=== PATIENT | female | born 1955 | race Caucasian/White ===

== ENCOUNTER 2018-10-15 05:36 | Emergency (ER) | payer SELFPAY ==
[~2018-10-15] VITALS: Ht 157.5 cm; Wt 49.9 kg
[2018-10-15] MEDS ORDERED: LIBRIUM25 MG ORAL (05:57)
--- NOTE | 2018-10-15 05:57 | Emergency Room Report ---
History of Present Illness General Chief Complaint: Substance Abuse Source: Patient Present Illness HPI Is a 62-year-old female who is an alcoholic. She presents with chief complaint of withdrawal symptoms. She was just discharged from the hospital and said that her last drink was 4 hours ago. She felt shaky. Similar symptom in the past. No fever chills. No chest pain. No suicidal thoughts. Said usually get Valium. Denies any other complaint. Allergies: Coded Allergies: PENICILLINS (Verified Allergy, Unknown, 10/15/18) SHELLFISH DERIVED (Verified Allergy, Unknown, 10/15/18) Patient History Past Medical History: see triage record, old chart reviewed Past Surgical History: none Pertinent Family History: none Social History: Reports: alcohol use; Denies: smoking Last Menstrual Period: n/a Now: No Immunizations: other Reviewed Nursing Documentation: PMH: Agreed; PSxH: Agreed Nursing Documentation-PM Past Medical History: No Stated History Review of Systems Eye: Denies: eye pain, blurred vision ENT: Denies: ear pain, nose congestion, throat swelling Respiratory: Denies: cough, shortness of breath Cardiovascular: Denies: chest pain, palpitations Gastrointestinal: Denies: abdominal pain, diarrhea, nausea, vomiting Musculoskeletal: Denies: back pain, joint pain Skin: Denies: rash Neurological: Denies: headache, numbness Endocrine: Denies: increased thirst, increased urine Hematologic/Lymphatic: Denies: easy bruising All Other Systems: negative except mentioned in HPI Physical Exam Vital Signs Date Time Temp Pulse Resp B/P (MAP) Pulse Ox O2 Delivery O2 Flow Rate FiO2 10/15/18 05:34 97.5 110 16 160/81 98 Room Air vitals with tachycardia and hypertension Sp02 EP Interpretation: reviewed, normal General Appearance: well appearing, no apparent distress, alert Head: normocephalic, atraumatic Eyes: bilateral eye PERRL, bilateral eye EOMI ENT: hearing grossly normal, normal pharynx Neck: full range of motion, supple, no meningismus Respiratory: chest non-tender, lungs clear, normal breath sounds Cardiovascular #1: regular rate, rhythm, no murmur Gastrointestinal: normal bowel sounds, non tender, no mass, no organomegaly, no bruit, non-distended Musculoskeletal: back normal, gait/station normal, normal range of motion Neurologic: alert, oriented x3, other - Mild tremulous Psychiatric: mood/affect normal Skin: warm/dry Medical Decision Making Diagnostic Impression: Primary Impression: Alcohol withdrawal syndrome Qualified Codes: F10.230 - Alcohol dependence with withdrawal, uncomplicated ER Course Patient with alcohol withdrawal symptoms. I gave her Librium here. No evidence of psychosis or altered mental status. We'll discharge home with Librium. Last Vital Signs Date Time Temp Pulse Resp B/P (MAP) Pulse Ox O2 Delivery O2 Flow Rate FiO2 10/15/18 05:34 97.5 110 16 160/81 98 Room Air Status: improved Disposition: HOME, SELF-CARE Condition: Stable Scripts Chlordiazepoxide (Chlordiazepoxide HCl) 25 Mg Capsule 25 MG ORAL THREE TIMES A DAY, #15 CAP 0 Refills Prov: Max Olmos MD 10/15/18 Additional Instructions: Follow-up with your doctor in 7 days. Return if worse. Abstain from alcohol. Max Olmos MD Oct 15, 2018 05:57
[2018-10-15] MEDS ORDERED: chlordiazePOXIDE 25mg Cap ORAL ONE (06:00)
[2018-10-15 06:15] VITALS: BP 149/84
[2018-10-15 06:20] VITALS: BP 160/81
== END 2018-10-15 06:20 | disposition home or self-care (01) ==
LOC: EDBD 05:36 → EMR 05:55
DX: F10.230 Alcohol dependence with withdrawal, uncomplicated (principal); Z88.0 Allergy status to penicillin; Z91.013 Allergy to seafood
CPT/HCPCS: 99283